=== PATIENT | male | born 1975 | race American Indian/Alaskan Native ===

== ENCOUNTER 2017-03-03 06:01 | Day surgery (SDC) | payer MEDICARE ==
--- NOTE | 2017-02-20 10:34 | Admit Criteria Form ---
Admission Criteria Documentation: AMBULATORY SURGERY EXCEPTION CRITERIA Ambulatory Surgery Exception Criteria ( Place 'X' for any and all applicable criteria): Surgery or procedure performed on ambulatory basis may require inpatient stay for[A] ANY ONE of the following(1)(2)(3)(4)(5)(6)(7)(8)(9): [X] I. A preoperative situation, condition, or finding that warrants inpatient stay as indicated by ANY ONE of the following: [] a) Inpatient care needed because of severity of a disease or condition rather than the surgery (eg, severe cardiac or respiratory disease, severe infection) (15) (16 ) (17) (18) [] b) Emergent procedure (eg, angioplasty for acute ischemia)(19) [] c) Complex surgical approach or situation as indicated by ANY ONE of the following(3): [] i) Open approach needed instead of usual endoscopic, transcatheter, or other less invasive procedure [] ii) Difficult approach because of previous operation [] iii) Airway monitoring required after open neck procedures(20)(21) [] iv) Large mass requiring unusually extensive dissection [] v) Additional complicating feature requiring inpatient care (eg, drain management)(22(23): [X] d) Major surgery in a pt with high anesthetic risk as indicated by ANY ONE of the following (2)(3)(5)(7)(8): [X] i) ASA risk class III or higher (severe systemic disease impairing function) [D] [] ii) Advanced age (eg, older than 85 years)(14)(24) [] iii) Symptomatic heart failure(25) [] iv) Symptomatic asthma or COPD(8)(21) [] v) Morbid obesity with hemodynamic or respiratory problems(20)( 21)(26)(27) [] vi) Obstructive sleep apnea(20)(21) [] vii) Former premature infants who are younger than 60 weeks [] viii) High risk for severe postoperative abnormalities (eg, severe postoperative hypocalcemia after parathyroidectomy for severe hyperparathyroidism)(27)( 28) [] ix) Unstable angina(25) [] e) Drug-related risk requiring inpatient stay as indicated by ANY ONE of the following(5)(10)(14)(32)(33) [] i) Procedure requires discontinuing drugs or other therapy (eg , antiarrhythmic medication, antiseizure medication), which necessitates inpatient observation or treatment.(18)(31) [] ii) Major surgery and high risk drug use as indicated by ANY ONE of the following: [] 1) Active abuse of cocaine or similar drug [] 2) Monoamine oxidase inhibitor use [] 3) Other drug identified as posing risk [] f) Inadequate outpatient care situation as indicated by ANY ONE of the following(5)(10)(14)(32)(33) [] i) Patient lives remote from medical facility and procedure has urgent complication potential, and temporary nearby residence cannot be arranged [] ii) Patient will have postprocedure incapacitation and inadequate assistance at home, or alternative level of care cannot be arranged. [] iii) Patient will have long general anesthesia or procedure side effect resolution time, and competent person to stay with patient on first postoperative night at home or alternative level of care cannot be arranged. []iv) Other inadequate outpatient situation that cannot be handled by other means [] II. A perioperative event, condition, or finding that warrants inpatient stay as indicated by ANY ONE of the following (1)(2)(3): [] a) Inadequate physiologic recovery: cardiovascular, respiratory, or hemodynamic status not normal or near preoperative baseline(18) [] b) Hemodynamic instability [] c) Patient not alert with near normal or baseline mental status [] d) Temperature not normal or as expected and not appropriate for outpatient treatment of condition [] e) Ambulatory or appropriate activity level status not yet achieved post procedure [E](34)(35)(36) [] f) Operative site not appropriate (eg, unexpected or excessive drainage or bleeding) [] g) Postoperative effects not resolved or adequately managed (eg, significant pain or vomiting not appropriate for outpatient or next level of care)(10)(12) [] h) Complicating features requiring inpatient care as indicated by ANY ONE of the following(37): [] i) Severe complications of procedure (eg, bowel injury, airway compromise, vascular injury,severe hemorrhage) [] ii) Extensive (eg, dissection far beyond usual scope of procedure ) or prolonged (eg, 120 minutes beyond usual) surgery needed requiring inpatient postoperative care [] iii) Conversion to an open or complex procedure that requires inpatient care (eg, open vs laparoscopic cholecystectomy, abdominal vs vaginal hysterectomy)(38) [] iv) Comorbid condition or test result identified during or post procedure that requires inpatient care (7) [] v) Malignant hyperthermia(30) [] vi) Other complicating feature requiring inpatient care(22)(23) Inpatient stay may be needed until ALL of the following are present (1)(2)(3)(4) (5)(6)(10)(14)(33)(40): []a) Physiologic recovery: cardiovascular, respiratory, and hemodynamic status normal or near preoperative baseline []b) Hemodynamic stability []c) Patient alert, with near normal or baseline mental status []d) Temperature appropriate: patient afebrile or temperature appropriate for outpt treatment of condition []e) Activity level appropriate: ambulatory or appropriate activity level post procedure []f) Operative site appropriate as indicated by ALL of the following: []i) Site dry or with expected drainage []ii) Any blood noted is as expected for procedure. []g) Postoperative effects resolved or managed as indicated by ALL of the following: []i) Pain management appropriate for outpatient (or next level of) care(10) []ii) Minimal nausea and vomiting: if present, successfully treated with oral medication(12) []iii) Headache, dizziness, or drowsiness (if present) are mild. []h) Voiding status acceptable as indicated by ANY ONE of the following: []i) Voiding spontaneously []ii) No voiding but instructions given for follow-up in 6 to 8 hours []iii) Urinary catheter in place, and instructions given for follow-up []i) Complicating features requiring inpatient care manageable at a lower level of care(37) []j) Comorbid conditions manageable at a lower level of care(37) The original [employer] content created by [employer] has been revised. The portions of the content which have been revised are identified through the use of italic text or in bold, and [employer] has neither reviewed nor approved the modified material. All other unmodified content is copyright [employer]. Please see references footnoted in the original [employer] edition 2016
[~2017-03-03 06:01] MED LIST: ANCEF/STERILE WATER 2 GM/20 ML 2 GM/20 ML SYRINGE IV NR; NACL 0.9% 1000 ML 1,000 ML IV SCH; PEPCID PO NR
--- NOTE | 2017-03-03 06:20 | Anesthesia Day of Surgery ---
Anesthesia Day of Surgery - Day of Surgery Patient Examined: Yes Patient H&P Reviewed: Yes Patient is NPO: Yes
--- NOTE | 2017-03-03 06:21 | Anesthesia Consultation ---
Anesthesia Consult and Med Hx Date of service: 03/03/17 - Airway Anesthetic Teeth Evaluation: Good ROM Head & Neck: Adequate Mental/Hyoid Distance: Inadequate Mallampati Class: Class III Intubation Access Assessment: Possibly Difficult - Pulmonary Exam CTA: Yes (blbs clear) - Cardiac Exam Cardiac Exam: RRR - Pre-Operative Health Status ASA Pre-Surgery Classification: ASA3 Proposed Anesthetic Plan: General - Pulmonary Hx Sleep Apnea: Yes (6YRS) - Cardiovascular System Hx Hypertension: Yes (8YRS) - Endocrine Hx Renal Disease: Yes Hx End Stage Renal Disease: Yes
[2017-03-03] MEDS ORDERED: NACL BACTERIOSTATIC INFILTRATI ONE (06:27)
[2017-03-03] MEDS: VERSED IV NR ×2 (06:50→07:25)
[2017-03-03 06:58] LABS: Hematocrit 35.5 % (35.5-45.6); Hemoglobin 11.8 gm/dl (11.8-15.2)
[2017-03-03] MEDS ORDERED: XYLOCAINE MPF 2% ONE (07:16)
[2017-03-03] MEDS ORDERED: DIPRIVAN 10 MG/ML IV ONE (07:17)
[2017-03-03] MEDS ORDERED: HEPARIN 10,000 UNITS/10 ML ONE (07:17)
[2017-03-03] MEDS ORDERED: XYLOCAINE 1%/ EPI 1:100,000 INFILTRATI ONE (07:17)
[2017-03-03] MEDS ORDERED: PROTAMINE SULFATE ONE (07:17)
[2017-03-03] MEDS ORDERED: MARCAINE 0.5% INFILTRATI ONE ×2 (07:17→08:44)
[2017-03-03] MEDS ORDERED: NITROGLYCERIN SYRINGE 0 ML ONE (07:18)
[2017-03-03] MEDS ORDERED: NACL 0.9% 500 ML 500 ML ONE (07:18)
[2017-03-03] MEDS ORDERED: SODIUM BICARBONATE ONE (07:18)
[2017-03-03] MEDS ORDERED: HEPARIN 10,000 UNITS/10 ML 2,000 UNIT in NACL 0.9% 500 ML 500 ML IR ONE (08:35)
[2017-03-03] MEDS ORDERED: NACL 0.9% IR ONE (08:44)
[2017-03-03] MEDS ORDERED: ZOFRAN ONE (08:48)
[2017-03-03] MEDS ORDERED: DILAUDID IV PRN (09:00)
--- NOTE | 2017-03-03 09:45 | Short Stay Summary ---
Short Stay Documentation Date of service: 03/03/17 Narrative H&P: See H&P - History H&P: obtained from office - Allergies and Medications Current Medications: Allergies No Known Allergies Allergy (Unverified 02/13/17 10:16) Home Medications Medication Instructions Recorded Confirmed Last Taken Type Allopurinol [Zyloprim] 300 mg PO QDAY 02/13/17 03/03/17 03/02/17 08:00 History Metoprolol [Lopressor] 50 mg PO QDAY 02/13/17 03/03/17 03/02/17 08:00 History amLODIPine [Norvasc] 10 mg PO DAILY 03/03/17 03/03/17 03/02/17 08:00 History 10MG Active Medications Cefazolin Sodium (Ancef/Sterile Water 2 Gm/20 Ml) 2 gm IV PREOP NR Famotidine (Pepcid) 20 mg PO PREOP NR Stop: 03/03/17 12:00 Last Admin: 03/03/17 06:45 Dose: 20 mg Hydromorphone HCl (Dilaudid) 0.5 mg IV Q10MIN PRN PRN Reason: Pain , Severe (7-10) Stop: 03/03/17 15:00 Sodium Chloride (Nacl 0.9% 1000 Ml) 1,000 mls @ 42 mls/hr IV DIRECT FIDELIA Last Admin: 03/03/17 06:54 Dose: 42 mls/hr Midazolam HCl (Versed) 2 mg IV PREOP NR Stop: 03/03/17 12:00 Last Admin: 03/03/17 07:25 Dose: 1 mg Ondansetron HCl (Zofran) 4 mg IV ONCE PRN PRN Reason: Nausea And Vomiting Stop: 03/03/17 10:01 - Brief post op/procedure progress note Date of procedure: 03/03/17 Pre-op diagnosis: End-Stage Renal Disease Post-op diagnosis: same Procedure: Creation of Left Kirstin Arteriovenous Fistula Anesthesia: МАРИЯ Surgeon: QUOC DENNISON Estimated blood loss: none Pathology: none Condition: stable - Disposition Condition at discharge: Good Disposition: DISCHARGED TO HOME OR SELFCARE Short Stay Discharge Plan Activity: other (no heavy lifting with left arm) Wound: open to air, keep clean and dry, other (okay to wash the wound with soap and water but do not soak in water) Follow up with: QUOC DENNISON MD [Staff Physician] - 14 Days Prescriptions: HYDROcodone/APAP 7.5-325 [[place] 7.5/325] 1 each PO Q6HR PRN #40 tablet PRN Reason: Pain
--- NOTE | 2017-03-03 09:46 | Operative Report ---
Operative Report Operative Report: Date of procedure: 03/03/2017 Pre-operative diagnosis: End-Stage Renal Disease Post-operative diagnosis: End-Stage Renal Disease Procedure(s): Creation of Left Kirstin Fistula Surgeon: Bruce Acosta MD Blueprint Reproducer: None Anesthesia: General Endotracheal Anesthesia EBL: Minimal Counts: Correct Complications: None Condition: Stable Findings: Successful creation of left arm AV fistula Specimen: None Indication: The patient is a 41-year-old male with a history of end-stage renal disease currently on hemodialysis through a right internal jugular permacath. He is in need of long-term access vein mapping demonstrated that he was an adequate candidate for an arteriovenous fistula. He was given the risks, benefits, and alternative procedures and consented to procedure. Description of Procedure: The patient was brought to the operating room and laid in supine position after general endotracheal anesthesia was achieved his left arm was prepped and draped in normal sterile fashion. Longitudinal incision was then created on the distal wrist centered over the cephalic vein and a second incision was created in longitudinal fashion over the radial artery. The radial artery was dissected out circumferentially and controlled with vessel loops. The cephalic vein was then dissected out circumferentially, ligating side branches and dividing them, and then a tunnel was created to transpose it over to the radial artery. A 3 Ankur was then advanced through the cephalic vein proximally to ensure patency. The vein was then flushed with heparinized saline and control of the bulldog clamp. The radial artery vessel loops were put on tension occluding flow, and then an 11 blade and Hunter scissors used to create an arteriotomy. An end-to-side anastomosis created between the cephalic vein and the radial artery using a single 6-0 Prolene in running fashion. Prior to completing the anastomosis I flushed the artery both retrograde and antegrade and advanced a 3 Ankur into the proximal portion of the artery to break the spasm. I then completed the anastomosis and removed all clamps allowing flow into the fistula which had an excellent thrill. The necessity wound using half percent Marcaine plain. Then closed the wounds in 2 layers using a 3-0 Vicryl running fashion the deep dermal layer, 4-0 Monocryl in a running fashion the subcuticular layer, and Surgicel as a dressing. The patient tolerated the procedure well, all sponge needle asthma counts correct, the patient was taken to recovery in stable condition.
--- NOTE | 2017-03-03 09:58 | Post Anesthesia Evaluation ---
- Post Anesthesia Evaluation Patient Participated: Yes Airway Patent: Yes Stable Respiratory Function: Yes Nausea/Vomiting: No Temp > 96.8F: Yes Pain Manageable: Yes Adequeate Hydration: Yes Anesthesia Complications: No Block Receding Appropriately: Not Applicable Patient on Ventilator: No
[2017-03-03] MEDS ORDERED: ZOFRAN IV PRN (10:00)
[2017-03-03] MEDS ORDERED: ANCEF/STERILE WATER 2 GM/20 ML IV NR (11:00)
[2017-03-03 11:13] VITALS: BP 142/88
== END 2017-03-03 11:33 | disposition home or self-care (01) ==
LOC: OR 06:01
PROVIDERS: ATTEND Surgery Vascular Surgery
DX: I12.0 Hypertensive chronic kidney disease with stage 5 chronic kidney disease or end stage renal disease (principal); N18.6 End stage renal disease; M10.9 Gout, unspecified; Z99.2 Dependence on renal dialysis; Z79.899 Other long term (current) drug therapy; Z98.890 Other specified postprocedural states; Z83.3 Family history of diabetes mellitus; Z82.49 Family history of ischemic heart disease and other diseases of the circulatory system
CPT/HCPCS: 36415; 36818; 84132; 85014; 85018; C1757; J1170; J1644; J2250; J2405; J2704; J7030; J7040; J2720

== ENCOUNTER 2017-06-09 05:45 | Day surgery (SDC) | payer MEDICARE ==
[2017-06-09] MEDS ORDERED: ANCEF/STERILE WATER 2 GM/20 ML 2 GM/20 ML SYRINGE IV NR (06:00)
[2017-06-09] MEDS ORDERED: NACL 0.9% 1000 ML 1,000 ML IV SCH (06:00)
[2017-06-09] MEDS ORDERED: NACL BACTERIOSTATIC INFILTRATI ONE (06:21)
[2017-06-09 06:50] LABS: Basophils % (Auto) 0.7 % (0.0-1.8); Eosinophils % (Auto) 2.2 % (0.0-4.3); Hematocrit 34.9 % (35.5-45.6); Hemoglobin 11.7 gm/dl (11.8-15.2); Mean Corpuscular HGB Conc 33 % (32-34); Mean Corpuscular Hemoglobin 31 pg (28-32); Mean Corpuscular Volume 93 fl (84-94); Platelet Count 156 K/mm3 (140-440); Red Blood Count 3.75 M/mm3 (3.65-5.03); Red Cell Distribution Width 15.3 % (13.2-15.2); White Blood Count 6.3 K/mm3 (4.5-11.0)
[2017-06-09 07:00] LABS: INR 0.91 (0.87-1.13)
[2017-06-09 07:01] LABS: BUN/Creatinine Ratio 2.92; Calcium 9.8 mg/dL (8.4-10.2); Chloride 98.8 mmol/L (98-107)
[2017-06-09] MEDS ORDERED: DIPRIVAN 10 MG/ML IV ONE (07:19)
[2017-06-09] MEDS ORDERED: XYLOCAINE MPF 2% ONE (07:19)
[2017-06-09] MEDS ORDERED: DILAUDID ONE (07:20)
--- NOTE | 2017-06-09 07:20 | Anesthesia Consultation ---
Anesthesia Consult and Med Hx Date of service: 06/09/17 - Airway Anesthetic Teeth Evaluation: Good ROM Head & Neck: Adequate Mental/Hyoid Distance: Adequate Mallampati Class: Class II Intubation Access Assessment: Probably Good - Pulmonary Exam CTA: Yes - Cardiac Exam Cardiac Exam: RRR - Pre-Operative Health Status ASA Pre-Surgery Classification: ASA4 Proposed Anesthetic Plan: General - Pulmonary Hx Sleep Apnea: Yes (6YRS) - Cardiovascular System Hx Hypertension: Yes (8YRS) - Central Nervous System Hx Psychiatric Problems: No - Endocrine Hx Renal Disease: Yes (dialysis MWF) Hx End Stage Renal Disease: Yes - Other Systems Hx Cancer: No
--- NOTE | 2017-06-09 07:20 | Anesthesia Day of Surgery ---
Anesthesia Day of Surgery - Day of Surgery Patient Examined: Yes Patient H&P Reviewed: Yes Patient is NPO: Yes Beta Blockers: Yes
[2017-06-09] MEDS ORDERED: LOPRESSOR PO ONE (07:30)
[2017-06-09] MEDS ORDERED: PROTAMINE SULFATE ONE (07:33)
[2017-06-09] MEDS ORDERED: MARCAINE 0.5% INFILTRATI ONE ×2 (07:33→09:09)
[2017-06-09] MEDS ORDERED: PAPAVERINE ONE (07:33)
[2017-06-09] MEDS ORDERED: HEPARIN 10,000 UNITS/10 ML ONE (07:33)
[2017-06-09] MEDS ORDERED: SODIUM BICARBONATE ONE (07:34)
[2017-06-09] MEDS ORDERED: NACL 0.9% 500 ML 500 ML ONE (07:34)
[2017-06-09] MEDS ORDERED: NITROGLYCERIN SYRINGE 3 ML ONE (07:34)
[2017-06-09] MEDS ORDERED: RIFADIN ONE (08:45)
[2017-06-09] MEDS ORDERED: ZOFRAN ONE (08:55)
[2017-06-09] MEDS ORDERED: DECADRON ONE (08:55)
[2017-06-09] MEDS ORDERED: HEPARIN 10,000 UNITS/10 ML 2,000 UNIT in NACL 0.9% 500 ML 500 ML IR ONE (09:09)
[2017-06-09] MEDS ORDERED: RIFADIN 600 MG in NACL 0.9% 50 ML IR ONE (09:09)
[2017-06-09] MEDS ORDERED: NACL 0.9% IR ONE (09:09)
--- NOTE | 2017-06-09 10:38 | Short Stay Summary ---
Short Stay Documentation Date of service: 06/09/17 Narrative H&P: See H&P - History H&P: obtained from office - Allergies and Medications Current Medications: Allergies No Known Allergies Allergy (Unverified 06/03/17 15:37) Home Medications Medication Instructions Recorded Confirmed Last Taken Type Allopurinol [Zyloprim] 300 mg PO QDAY 02/13/17 06/09/17 06/07/17 10:00 History Metoprolol [Lopressor TAB] 50 mg PO QDAY 02/13/17 06/09/17 06/07/17 10:00 History amLODIPine [Norvasc] 10 mg PO DAILY 03/03/17 06/09/17 06/07/17 10:00 History Active Medications Cefazolin Sodium (Ancef/Sterile Water 2 Gm/20 Ml) 2 gm in 20 mls @ 80 mls/hr IV PREOP NR PRN Reason: Protocol Stop: 06/09/17 23:29 Sodium Chloride (Nacl 0.9% 1000 Ml) 1,000 mls @ 42 mls/hr IV DIRECT FIDELIA Last Admin: 06/09/17 06:41 Dose: 42 mls/hr - Brief post op/procedure progress note Date of procedure: 06/09/17 Pre-op diagnosis: End-Stage Renal Disease Post-op diagnosis: same Procedure: Creation of left brachiocephalic arteriovenous fistula Anesthesia: МАРИЯ Surgeon: QUOC DENNISON Estimated blood loss: minimal Pathology: none Condition: stable - Disposition Condition at discharge: Good Disposition: DC-01 TO HOME OR SELFCARE Short Stay Discharge Plan Activity: other (no heavy lifting with left arm) Wound: open to air, keep clean and dry, other (okay to wash the wound with soap and water but do not soak in water) Follow up with: QUOC DENNISON MD [Staff Physician] - 14 Days Prescriptions: HYDROcodone/APAP 7.5-325 [[place] 7.5/325] 1 each PO Q6HR PRN #50 tablet PRN Reason: Pain
--- NOTE | 2017-06-09 10:41 | Operative Report ---
Operative Report Operative Report: Date of procedure: 06/09/2017 Pre-operative diagnosis: End-Stage Renal Disease Post-operative diagnosis: End-Stage Renal Disease Procedure(s): Creation of Left Brachial Artery to Cephalic Vein Arteriovenous Fistula Surgeon: Bruce Acosta MD Corporate Financial Analyst: None Anesthesia: Gen. endotracheal anesthesia EBL: Minimal Counts: Correct Complications: None Condition: Stable Findings: Successful creation of left brachiocephalic arteriovenous fistula with palpable thrill at the completion of the case. Specimen: None Indications: The patient is a 42-year-old male with history of end-stage renal disease with previous creation of a left Kirstin fistula. This failed and he is in need of new access. He was given the risks, benefits, and alternative procedures and consented to the procedure. Description of Procedure: The patient was brought to the operating room and laid in supine position after general endotracheal anesthesia was administered the patient was prepped and draped in normal sterile fashion. After anesthetizing the skin a transverse incision was created just below the antecubital crease. Dissection was carried down to the the cephalic vein using sharp dissection. The vein was dissected out both proximally and distally and suture ligated and divided distally. I then ran a 3 Ankur proximally in the vein, to ensure patency of the vein. Then flushed the vein with heparinized saline and flow was controlled with a bulldog clamp. I then dissected out the brachial artery through this incision circumferentially both proximal and distal and controlled the artery with vessel loops. I then placed the vessel loops on tension controlling the flow through the artery and created an arteriotomy using an 11 blade and Hunter scissors. I created an end to side anastomosis between the cephalic vein and brachial artery using a 6-0 Prolene in running fashion. Prior to completing the anastomosis I flushed the artery both proximally and distally and then advanced a 3 Ankur proximally to break the spasm in the artery. I then completed the anastomosis and removed all vessel loops allowing flow into the fistula which had an excellent thrill. I achieved hemostasis with a combination of direct pressure and electrocautery. Once hemostasis was achieved I anesthetized the wound with Marcaine. I then closed the wound in 2 layers and 3-0 Vicryl in a running fashion to close the deep dermal layer and 4- 0 Monocryl in a running fashion in the subcuticular layer. I dressed the wound with Surgicel. The patient tolerated the procedure well, all sponge needle and instrument counts were correct. The patient was taken to recovery in stable condition.
[2017-06-09] MEDS: DILAUDID IV PRN ×3 (10:52→11:15)
[2017-06-09 12:39] VITALS: BP 137/99
[2017-06-09] MEDS ORDERED: NORCO 7.5/325 PO ONE (13:30)
== END 2017-06-09 13:52 | disposition home or self-care (01) ==
LOC: OR 05:45
PROVIDERS: ATTEND Surgery Vascular Surgery
DX: I12.0 Hypertensive chronic kidney disease with stage 5 chronic kidney disease or end stage renal disease (principal); N18.6 End stage renal disease; G47.33 Obstructive sleep apnea (adult) (pediatric); M10.9 Gout, unspecified; Z99.2 Dependence on renal dialysis; Z98.890 Other specified postprocedural states; Z79.899 Other long term (current) drug therapy; Z83.3 Family history of diabetes mellitus; Z82.49 Family history of ischemic heart disease and other diseases of the circulatory system
CPT/HCPCS: 36415; 36821; 80048; 82962; 85025; 85610; C1757; J0690; J1100; J1170; J1644; J2405; J2440; J2704; J2720; J3490; J7030; J7040

== ENCOUNTER 2018-01-05 08:01 | Day surgery (SDC) | payer MEDICARE ==
[~2018-01-05 08:01] MED LIST changes: +HEPARIN 10,000 UNITS/10 ML ONE; +MARCAINE 0.5% INFILTRATI ONE; +NACL 0.9% 250ML 250 ML ONE; -PEPCID PO NR; +VERSED IV NR
[2018-01-05 09:27] LABS: Calcium 11.7 mg/dL (8.4-10.2)
[2018-01-05 09:43] LABS: Basophils % (Auto) 0.5 % (0.0-1.8); Eosinophils # (Auto) 0.3 K/mm3 (0.0-0.4); Eosinophils % (Auto) 3.1 % (0.0-4.3); Hematocrit 36.3 % (35.5-45.6); Hemoglobin 12.1 gm/dl (11.8-15.2); Lymphocytes # (Auto) 2.6 K/mm3 (1.2-5.4); Lymphocytes % (Auto) 30.9 % (13.4-35.0); Mean Corpuscular HGB Conc 33 % (32-34); Mean Corpuscular Hemoglobin 31 pg (28-32); Mean Corpuscular Volume 92 fl (84-94); Monocytes # (Auto) 0.6 K/mm3 (0.0-0.8); Monocytes % (Auto) 7.7 % (0.0-7.3); Platelet Count 210 K/mm3 (140-440); Red Blood Count 3.94 M/mm3 (3.65-5.03); Red Cell Distribution Width 16.3 % (13.2-15.2)
[2018-01-05] MEDS ORDERED: DIPRIVAN 10 MG/ML IV ONE (11:31)
[2018-01-05] MEDS ORDERED: DILAUDID ONE (12:29)
[2018-01-05] MEDS ORDERED: SUBLIMAZE ONE (12:36)
[2018-01-05] MEDS ORDERED: XYLOCAINE MPF 2% ONE (12:38)
[2018-01-05] MEDS ORDERED: NACL 0.9% IR ONE (12:59)
[2018-01-05] MEDS ORDERED: MARCAINE 0.5% INFILTRATI ONE ×2 (12:59→17:25)
[2018-01-05] MEDS ORDERED: HEPARIN 10,000 UNITS/10 ML 1,000 UNIT in NACL 0.9% 250ML 250 ML IR ONE (13:00)
[2018-01-05] MEDS ORDERED: ePHEDrine SULFATE ONE (13:39)
--- NOTE | 2018-01-05 14:40 | Short Stay Summary ---
Short Stay Documentation Date of service: 01/05/18 Narrative H&P: See H&P - History H&P: obtained from office - Allergies and Medications Current Medications: Allergies No Known Allergies Allergy (Unverified 06/03/17 15:37) Home Medications Medication Instructions Recorded Confirmed Last Taken Type Allopurinol [Zyloprim] 300 mg PO QDAY 02/13/17 01/04/18 06/07/17 10:00 History Metoprolol [Lopressor TAB] 50 mg PO QDAY 02/13/17 01/05/18 01/04/18 History HYDROcodone/APAP 7.5-325 [[place] 1 each PO Q6HR PRN #50 tablet 06/09/17 01/04/18 Unknown Rx 7.5/325] amLODIPine [Norvasc] 10 mg PO DAILY 01/04/18 01/05/18 01/04/18 History Active Medications Cefazolin Sodium (Ancef/Sterile Water 2 Gm/20 Ml) 2 gm in 20 mls @ 80 mls/hr IV PREOP NR; Protocol Stop: 01/05/18 23:59 Sodium Chloride (Nacl 0.9% 1000 Ml) 1,000 mls @ 42 mls/hr IV DIRECT FIDELIA Midazolam HCl (Versed) 2 mg IV PREOP NR Stop: 01/05/18 23:59 - Brief post op/procedure progress note Date of procedure: 01/05/18 Pre-op diagnosis: Complications of Dialysis Access Post-op diagnosis: same Procedure: Revision with Elevation of Left Brachiocephalic Arteriovenous Fistula Anesthesia: GETA Surgeon: QUOC DENNISON Estimated blood loss: 50-100ml Pathology: list (portion of left brachial cephalic arterial venous fistula) Specimen disposition: to lab Condition: stable - Disposition Condition at discharge: Good Disposition: DC-01 TO HOME OR SELFCARE Short Stay Discharge Plan Activity: other (no heavy lifting with left arm) Wound: open to air, keep clean and dry, other (okay to wash the wound with soap and water but do not soak in water) Follow up with: QUOC DENNISON MD [Staff Physician] - 14 Days Prescriptions: HYDROcodone/APAP 7.5-325 [[place] 7.5/325] 1 each PO Q6HR PRN #60 tablet PRN Reason: Pain
--- NOTE | 2018-01-05 14:54 | Operative Report ---
Operative Report Operative Report: Date of Procedure: 01/05/2018 Pre-operative Diagnosis: Complications of dialysis Access Post-operative Diagnosis: Same Procedure(s): 1. Revision with Elevation of Left Brachiocephalic Arteriovenous Fistula Surgeon: Bruce Acosta M.D. Licensing Engineer: None Anesthesia: Gen. endotracheal anesthesia EBL: 100 mL Counts: Correct Complications: None Condition: Stable Findings: Successful revision with elevation of left brachiocephalic fistula with palpable thrill at the completion of the case. Specimen: Redundant portion of left brachiocephalic fistula sent to pathology. Indication: The patient is a 42-year-old male with a history of end-stage renal disease who is currently on hemodialysis through a right internal jugular permacath. He was previously on dialysis through a left brachiocephalic arteriovenous fistula however this was quite tortuous and was difficult to cannulate so he is in need of revision. He was given the risks, benefits, and alternative procedures and consented to the procedure. Description of Procedure: The patient was brought into the operating room and laid in supine position. After general endotracheal anesthesia was achieved his left arm was prepped and draped in normal sterile fashion. A longitudinal incision was created on the left arm extending from just below the shoulder to just above the antecubital crease centered over the tortuous fistula. Sharp dissection with Metzenbaums was used to carry the dissection down to the fistula and all side branches were dissected circumferentially and suture ligated and divided. The fistula was then dissected circumferentially freeing it up along the length of the incision. The incision was then anesthetized with 0.5% Marcaine and then a subcutaneous flap was made along the lateral portion of the incision ensuring that this was not made to them. Once this was created the arterial portion of the venous portion of the fistula was clamped with an angled DeBakey and the redundant portion of the fistula was resected. An end-to-end anastomosis was then created using 2 6-0 Prolene's in running fashion. Prior to completing the anastomosis the venous portion and the arterial portion of the fistula was flashed to remove any thrombus. The anastomosis completed and then the clamps were removed to allow flow into the fistula which had a palpable thrill. Hemostasis within the wound was achieved with a combination of cautery and quick clot. Once hemostasis was achieved the wound was closed in 2 layers using a 3-0 Vicryl running fashion the deep dermal layer and a 4-0 Monocryl in a running fashion and the subcuticular layer and Dermabond to dress the skin. The patient tolerated the procedure well. All sponge, needle, and estimate counts were correct. The patient was taken to the recovery area in stable condition.
[2018-01-05] MEDS ORDERED: NORCO 7.5/325 PO ONE (16:55)
[2018-01-05 18:20] VITALS: BP 114/72
== END 2018-01-05 17:40 | disposition home or self-care (01) ==
LOC: OR 08:01
PROVIDERS: ATTEND Surgery Vascular Surgery
DX: T82.590A Other mechanical complication of surgically created arteriovenous fistula, initial encounter (principal); I12.0 Hypertensive chronic kidney disease with stage 5 chronic kidney disease or end stage renal disease; N18.6 End stage renal disease; M10.9 Gout, unspecified; G47.30 Sleep apnea, unspecified; Z99.89 Dependence on other enabling machines and devices; Z98.890 Other specified postprocedural states; Y83.2 Surgical operation with anastomosis, bypass or graft as the cause of abnormal reaction of the patient, or of later complication, without mention of misadventure at the time of the procedure
CPT/HCPCS: 36415; 36832; 80048; 85025; 94660; J0690; J1170; J1644; J2704; J3010; J7030; J7050